=== PATIENT | male | born 1950 | race Caucasian/White ===

== ENCOUNTER 2016-10-14 10:23 | Emergency (ER) | payer MEDICARE, OTHER ==
[~2016-10-14] VITALS: Ht 188 cm; Wt 81.5 kg
[~2016-10-14 10:23] MED LIST: ASPI81TA45 PO; METO25 PO; PRAV40TA PO
[2016-10-14 10:25] VITALS: BP 183/86; PULSE 88; RESP 20; TEMP 97.5; O2SAT 95
[2016-10-14] MEDS ORDERED: ASPI1TAB69 PO (10:38)
[2016-10-14] MEDS ORDERED: PRAV40TA PO (10:38)
[2016-10-14] MEDS ORDERED: METO25TA3 PO (10:38)
[2016-10-14] MEDS ORDERED: COUM1TAB PO (10:41)
[2016-10-14] MEDS ORDERED: LIDOCAINE HCL 1% 50 ML VIAL INFIL ONE (10:45)
--- NOTE | 2016-10-14 10:49 | PD ---
HPI Chief Complaint: Fall Time Seen by Provider: 10:46 Travel History International Travel<30 days: No Contact w/Intl Traveler<30days: No Traveled to known affect area: No History of Present Illness HPI 66-year-old male presents to the emergency department sent by urgent care center for evaluation after a trip and fall. He states that he tripped over a concrete while at work, falling and hitting his face against concrete. He denies any loss of consciousness. The patient has a laceration to the left volar hand just proximal to the second digit. He denies any pain or loss of range of motion. Patient denies any visual changes. He denies any neck pain or back pain. No chest pain or abdominal pain. The patient is on warfarin. Apparently, at an urgent care center, he had skull x-rays and they were concerned of a possible lucency for him to the emergency department for CT scans. The patient denies any pain. His tetanus immunization was updated at urgent care. [facility] Past Medical History Atrial Fibrillation: Yes Heart Rhythm Problems: Yes (PT DIAGNOSED WITH A-FIB) Cardiovascular Problems: Yes (PT BEING ADMITTED WITH ATRIAL FIBRILLATION NEW ONSET ) High Cholesterol: Yes Chest Pain: No Congestive Heart Failure: No Diminished Hearing: No Genitourinary: No Hiatal Hernia: Yes Musculoskeletal: No Neurologic: No Reproductive: No Respiratory: No Tetanus Vaccination: < 5 Years Influenza Vaccination: No Past Surgical History Abdominal Surgery: No Cardiac Surgery: No Ear Surgery: No Endocrine Surgery: No Eye Surgery: No Genitourinary Surgery: No Gynecologic Surgery: No Oral Surgery: No Thoracic Surgery: No Other Surgery: Yes (HERNIA REPAIR AT 8 YEARS OF AGE ) Social History Alcohol Use: Yes (BEER OCCASIONALLY) Tobacco Use: No (QUIT IN ) Substance Use: No Allergies-Medications (Allergen,Severity, Reaction): Coded Allergies: No Known Allergies (Verified , 10/14/16) Reported Meds & Prescriptions Reported Meds & Active Scripts Active Reported Coumadin (Warfarin) 1 Mg Tab Unknown Dose PO DAILY Metoprolol Tartrate 25 Mg Tab 25 Mg PO DAILY Pravachol (Pravastatin) 40 Mg Tab 40 Mg PO DAILY Aspirin 81 Mg Tabdr 81 Mg PO DAILY Review of Systems Except as stated in HPI: all other systems reviewed are Neg Physical Exam Narrative GENERAL: Well-nourished, well-developed male patient, ambulatory. Afebrile. SKIN: Focused skin assessment warm/dry. Patient has abrasions to dorsal nose, upper lip. He also has a 2.5 cm laceration to the left volar hand just proximal to the second digit. I'm able to visualize the base of this wound which is not bleeding. HEAD: Normocephalic. ENT: Mucosa pink and moist. No erythema or exudates. No uvular edema. No uvular , palatal, or tonsillar deviation. Airway patent. Nasal turbinates appear normal , but nasal blood noted. No purulent drainage or septal hematoma. Bilateral tympanic membranes are clear without erythema or perforation. EYES: No scleral icterus. No injection or drainage. PERRLA. NECK: Supple, trachea midline. No JVD or lymphadenopathy. CARDIOVASCULAR: Regular rate and rhythm without murmurs, gallops, or rubs. Left radial pulse is 2+ P RESPIRATORY: Breath sounds equal bilaterally. No accessory muscle use. Lungs sounds are clear to auscultation. GASTROINTESTINAL: Abdomen soft, non-tender, nondistended. MUSCULOSKELETAL: No cyanosis, or edema. Patient has full range of motion of all digits of the left hand. He has a normal grasp and left hand. He can make a full fist and fully extend all digits of the left hand. BACK: Nontender without obvious deformity. No CVA tenderness. Patient has no midline spinal tenderness. He has full range of motion the cervical spine without pain or stiffness. Data Data Last Documented VS Vital Signs Date Time Temp Pulse Resp B/P Pulse Ox O2 Delivery O2 Flow Rate FiO2 10/14/16 10:38 17 99 Room Air 10/14/16 10:25 97.5 88 183/[address] Brain W/O Iv Contrast(Rout) (10/14/16 ) Ct Facial Bones W/O Iv Cont (10/14/16 ) Lidocaine 1% Inj (50 Ml) (Xylocaine 1% I (10/14/16 10:45) Prothrombin Time / Inr (Pt) (10/14/16 10:55) Labs Laboratory Tests Test 10/14/16 11:10 Prothrombin Time 11.3 SEC Prothromb Time International 1.0 RATIO Ratio MDM Medical Decision Making Medical Screen Exam Complete: Yes Emergency Medical Condition: Yes Medical Record Reviewed: Yes Differential Diagnosis Closed head injury versus intracranial abnormality versus contusion versus fracture versus abrasion versus laceration Narrative Course 66-year-old male presents to the emergency department for evaluation after a trip and fall at work. He was sent by urgent care after a skull x-ray and facial bone x-rays were completed. He was sent here for further imaging, CT scans. The patient denies any complaints. There is no evidence of tendon injury on exam. Patient gives verbal consent for laceration repair. CT of the brain and CT of the facial bones are ordered and pending. CT of the brain shows no acute intracranial disease. CT of the facial bones shows a questionable nondisplaced fracture lateral right maxillary sinus. PT is 11.3, INR 1.0. The patient has no tenderness over area of questionable fracture. Therefore, I believe that fracture is unlikely in this area. The laceration is repaired. Patient is instructed on proper wound care. He will be discharged with a prescription for Keflex. I did discuss the patient that his INR was 1.0. He states that he ran out of his Coumadin one week ago. He is not sure why he is on Coumadin, but states it is not for atrial fibrillation. I discussed that he needs to follow-up with his doctor as soon as possible for his Coumadin. He verbalizes understanding. The patient was discharged in stable condition with instructions, including return instructions and follow up instructions. Procedures Procedure Narrative LACERATION LOCATION: Left hand LENGTH: 2.5 cm NUMBER OF STITCHES/GABY: 4 simple interrupted sutures REPAIR: The area of the laceration was prepped with Betadine and sterilely draped. The laceration was infiltrated with 1% lidocaine. The wound was copiously irrigated and explored without evidence of foreign body, tendon injury or neurovascular injury. The wound was closed using 4-0 Prolene. This was a single layer repair. A sterile dressing was applied. The patient was advised to keep the dressing clean and dry. Patient tolerated the procedure well. Diagnosis Primary Impression: Closed head injury Qualified Code: S09.90XA - Closed head injury, initial encounter Additional Impressions: Facial contusion Qualified Code: S00.83XA - Facial contusion, initial encounter Hand laceration Qualified Code: S61.412A - Laceration of left hand without foreign body, initial encounter Patient Instructions: Care For Your Stitches (ED), General Instructions, Head Injury (ED), Laceration (ED) Additional Instructions: Clean abrasions and laceration twice daily with soap and water and apply over- the-counter antibiotic ointment. Keep clean and dry. Take antibiotic as directed until gone. Follow-up with your Worker's Comp. physician. Return to the emergency department for any acute worsening of symptoms. Med/Other Pt SpecificInfo: Prescription(s) given Scripts Cephalexin (Keflex)500 Mg Ogq278 Mg PO Q8H 7 Days Ref 0 Prov:Sobeida Paul 10/14/16 Disposition: 01 DISCHARGE HOME Condition: Stable Sobeida Paul October 14, 2016 10:49
[2016-10-14 11:45] LABS: PROTHROMBIN TIME - PATIENT 11.3 SEC (9.8-11.6)
--- NOTE | 2016-10-14 12:30 | RADRPT ---
EXAM DATE/TIME: 10/14/2016 12:15 [facility] COMPARISON: CT BRAIN W/O CONTRAST, December 23, 2010, 12:58. INDICATIONS : Tripped and fell at work, abrasion to nose and lip RADIATION DOSE: 47.66 CTDIvol (mGy) MEDICAL HISTORY : Cardiovascular disease. SURGICAL HISTORY : Hernia repair ENCOUNTER: Initial ACUITY: 1 day PAIN SCALE: 3/10 LOCATION: facial TECHNIQUE: Multiple contiguous axial images were obtained of the head. Using automated exposure control and adj ustment of the mA and/or kV according to patient size, radiation dose was kept as low as reasonably a chievable to obtain optimal diagnostic quality images. FINDINGS: CEREBRUM: The ventricles are unchanged in size, posterior horn right lateral ventricle is somewhat prominent bu t unchanged. Cavum septum pellucidum. No evidence of midline shift, mass lesion, hemorrhage or acute infarction. No extra-axial fluid collections are seen. POSTERIOR FOSSA: The cerebellum and brainstem are intact. The 4th ventricle is midline. The cerebellopontine angle i s unremarkable. EXTRACRANIAL: The visualized portion of the orbits is intact. SKULL: The calvaria is intact. No evidence of skull fracture. CONCLUSION: No acute intracranial disease. Flako Hernandez MD on October 14, 2016 at 12:26 Board Certified Radiologist. This report was verified electronically.
--- NOTE | 2016-10-14 12:33 | RADRPT ---
EXAM DATE/TIME: 10/14/2016 12:15 [facility] COMPARISON: No previous studies available for comparison. INDICATIONS : Tripped and fell at work, abrasion to nose and lip. RADIATION DOSE: 63.63 CTDIvol (mGy) MEDICAL HISTORY : Cardiovascular disease. SURGICAL HISTORY : Hernia repair ENCOUNTER: Initial ACUITY: 1 day PAIN SCORE: 3/10 LOCATION: facial TECHNIQUE: Volumetric scanning of the facial bones was performed. Using automated exposure control and adjustme nt of the mA and/or kV according to patient size, radiation dose was kept as low as reasonably achiev able to obtain optimal diagnostic quality images. FINDINGS: ORBITS: The orbital and infraorbital osseous structures are intact. The retroconal structures have a normal configuration. No radiopaque foreign bodies are seen. NASAL BONE: The nasal bone and maxillary spine are intact ZYGOMATIC ARCHES: Symmetric without evidence of fracture. SINUSES: Questionable nondisplaced fracture lateral right maxillary sinus. Partial opacification of the maxill meagan and ethmoid sinuses with minimal disease in the sphenoid sinuses. Hypoplastic frontal sinuses gre ater in the left. NASAL CAVITY: The nasal septum is intact and midline. The lacrimal ducts are intact. SOFT TISSUES: No radiopaque foreign bodies seen. Facial soft-tissue swelling is seen. INTRACRANIAL: No intracranial air seen. CRIBIFORM PLATE: Grossly intact. CONCLUSION: 1. Questionable nondisplaced fracture lateral right axillary sinus. 2. Pansinusitis. 3. Facial soft tissue swelling. Flako Hernandez MD on October 14, 2016 at 12:27 Board Certified Radiologist. This report was verified electronically.
[2016-10-14] MEDS ORDERED: CEPH-460 PO (13:25)
== END 2016-10-14 13:48 | disposition home or self-care (01) ==
LOC: NEPD 10:23
DX: S61.412A Laceration without foreign body of left hand, initial encounter (principal); S00.83XA Contusion of other part of head, initial encounter; S09.90XA Unspecified injury of head, initial encounter; I48.91 Unspecified atrial fibrillation; W18.09XA Striking against other object with subsequent fall, initial encounter; Y99.0 Civilian activity done for income or pay
CPT/HCPCS: 12001; 70450; 70486; 85610

== ENCOUNTER 2017-09-01 10:30 | Emergency (ER) | payer OTHER ==
[~2017-09-01] VITALS: Ht 188 cm; Wt 84.0 kg
[~2017-09-01 10:30] MED LIST changes: +ASPI1TAB69 PO; -ASPI81TA45 PO; +CEPH-460 PO; +COUM1TAB PO; -METO25 PO; +METO25TA3 PO
[2017-09-01 11:21] VITALS: BP 112/69; PULSE 82; RESP 18; TEMP 99.6; O2SAT 94
[2017-09-01 11:30] VITALS: RESP 20; O2SAT 87
[2017-09-01] MEDS ORDERED: SODIUM CHLORIDE 0.9% FLUSH 10 ML FLUSH IVF PRN (11:30)
--- NOTE | 2017-09-01 11:55 | RADRPT ---
EXAM DATE/TIME: 09/01/2017 11:35 [facility] COMPARISON: No previous studies available for comparison. INDICATIONS : Cough MEDICAL HISTORY : None. SURGICAL HISTORY : None. ENCOUNTER: Initial ACUITY: 3 days PAIN SCORE: 0/10 LOCATION: Bilateral chest FINDINGS: A single view of the chest demonstrates the lungs to be symmetrically aerated without evidence of mas s, infiltrate or effusion. The cardiomediastinal contours are unremarkable. Osseous structures are intact. Costicartilage calcifications present. There are electrocardiogram leads. CONCLUSION: No acute disease. There is no evidence of pneumonia. Ishmael Carreon MD on September 01, 2017 at 11:52 Board Certified Radiologist. This report was verified electronically.
--- NOTE | 2017-09-01 12:06 | PD ---
HPI Chief Complaint: Syncope/Near-Syncope Time Seen by Provider: 11:21 Travel History International Travel<30 days: No Contact w/Intl Traveler<30days: No Traveled to known affect area: No History of Present Illness HPI 67-year-old male complains of cough for a few days. He reports multiple people in his home also have had similar symptoms. The patient arrived by private vehicle to EMS and in triage coughed a few times and then lost consciousness and then upon waking up vomited. The patient denies this at the time of my assessment. He has no chest pain or shortness of breath. The cough is nonproductive. No fever. Patient's significant other reports he has been much less active and generally over the past few days. [facility] Past Medical History Atrial Fibrillation: Yes Heart Rhythm Problems: Yes (PT DIAGNOSED WITH A-FIB) Cardiovascular Problems: Yes (PT BEING ADMITTED WITH ATRIAL FIBRILLATION NEW ONSET ) High Cholesterol: Yes Chest Pain: No Congestive Heart Failure: No Diminished Hearing: No Genitourinary: No Hiatal Hernia: Yes Musculoskeletal: No Neurologic: No Reproductive: No Respiratory: No Influenza Vaccination: Yes Past Surgical History Abdominal Surgery: No Cardiac Surgery: No Ear Surgery: No Endocrine Surgery: No Eye Surgery: No Genitourinary Surgery: No Gynecologic Surgery: No Neurologic Surgery: No Oral Surgery: No Thoracic Surgery: No Other Surgery: Yes (HERNIA REPAIR AT 8 YEARS OF AGE ) Social History Alcohol Use: Yes (BEER OCCASIONALLY) Tobacco Use: No (QUIT IN ) Substance Use: No Allergies-Medications (Allergen,Severity, Reaction): Coded Allergies: No Known Allergies (Verified Adverse Reaction, Unknown, 09/01/17) Reported Meds & Prescriptions Reported Meds & Active Scripts Active Keflex (Cephalexin) 500 Mg Cap 500 Mg PO Q8H 7 Days Reported Coumadin (Warfarin) 1 Mg Tab Unknown Dose PO DAILY Metoprolol Tartrate 25 Mg Tab 25 Mg PO DAILY Pravachol (Pravastatin) 40 Mg Tab 40 Mg PO DAILY Aspirin 81 Mg Tabdr 81 Mg PO DAILY Review of Systems Except as stated in HPI: all other systems reviewed are Neg General / Constitutional: No: Fever Physical Exam Narrative GENERAL: 67-year-old male well-nourished well-developed, no acute distress, answering questions appropriately Vital Signs Date Time Temp Pulse Resp B/P (MAP) Pulse Ox O2 Delivery O2 Flow Rate FiO2 09/01/17 11:30 20 87 Nasal Cannula 2.00 09/01/17 11:21 99.6 82 18 112/69 (83) 94 SKIN: Warm and dry. HEAD: Atraumatic. Normocephalic. EYES: Pupils equal and round. No scleral icterus. No injection or drainage. ENT: No nasal bleeding or discharge. Mucous membranes pink and moist. NECK: Trachea midline. No JVD. CARDIOVASCULAR: R regular rhythm. Rate about 80.. RESPIRATORY: The lungs are clear bilaterally. GASTROINTESTINAL: Abdomen soft, non-tender, nondistended. Hepatic and splenic margins not palpable. MUSCULOSKELETAL: Extremities without clubbing, cyanosis, or edema. No obvious deformities. NEUROLOGICAL: Awake and alert. No obvious cranial nerve deficits. Motor grossly within normal limits. Five out of 5 muscle strength in the arms and legs. Normal speech. PSYCHIATRIC: Appropriate mood and affect; insight and judgment normal. Data Data Last Documented VS Vital Signs Date Time Temp Pulse Resp B/P (MAP) Pulse Ox O2 Delivery O2 Flow Rate FiO2 09/01/17 13:29 87 18 150/76 (100) 95 Nasal Cannula 2.00 09/01/17 11:21 99.6 Orders Orders Electrocardiogram (09/01/17 11:26) Complete Blood Count With Diff (09/01/17 11:26) Comprehensive Metabolic Panel (09/01/17 11:26) Magnesium (Mg) (09/01/17 11:26) Ckmb (Isoenzyme) Profile (09/01/17 11:26) Troponin I (09/01/17 11:26) Chest, Single Ap (09/01/17 11:26) Ecg Monitoring (09/01/17 11:26) Iv Access Insert/Monitor (09/01/17 11:26) Oximetry (09/01/17 11:26) Sodium Chloride 0.9% Flush (Ns Flush) (09/01/17 11:30) Ct Pulmonary Angiogram (09/01/17 11:26) B-Type Natriuretic Peptide (09/01/17 11:26) CKMB (09/01/17 12:00) CKMB% (09/01/17 12:00) Iohexol 350 Inj (Omnipaque 350 Inj) (09/01/17 13:11) Ed Discharge Order (09/01/17 13:44) Labs Laboratory Tests Test 09/01/17 12:00 White Blood Count 4.4 TH/MM3 Red Blood Count 4.66 MIL/MM3 Hemoglobin 14.8 GM/DL Hematocrit 43.8 % Mean Corpuscular Volume 94.0 FL Mean Corpuscular Hemoglobin 31.8 PG Mean Corpuscular Hemoglobin Concent 33.8 % Red Cell Distribution Width 12.3 % Platelet Count 121 TH/MM3 Mean Platelet Volume 8.3 FL Neutrophils (%) (Auto) 67.4 % Lymphocytes (%) (Auto) 19.2 % Monocytes (%) (Auto) 8.6 % Eosinophils (%) (Auto) 0.4 % Basophils (%) (Auto) 4.4 % Neutrophils # (Auto) 3.0 TH/MM3 Lymphocytes # (Auto) 0.8 TH/MM3 Monocytes # (Auto) 0.4 TH/MM3 Eosinophils # (Auto) 0.0 TH/MM3 Basophils # (Auto) 0.2 TH/MM3 CBC Comment DIFF FINAL Differential Comment Blood Urea Nitrogen 20 MG/DL Creatinine 1.00 MG/DL Random Glucose 107 MG/DL Total Protein 7.0 GM/DL Albumin 3.3 GM/DL Calcium Level 7.7 MG/DL Magnesium Level 2.1 MG/DL Alkaline Phosphatase 69 U/L Aspartate Amino Transf (AST/SGOT) 55 U/L Alanine Aminotransferase (ALT/SGPT) 46 U/L Total Bilirubin 0.5 MG/DL Sodium Level 135 MEQ/L Potassium Level 3.6 MEQ/L Chloride Level 100 MEQ/L Carbon Dioxide Level 28.4 MEQ/L Anion Gap 7 MEQ/L Estimat Glomerular Filtration Rate 74 ML/MIN Total Creatine Kinase 370 U/L Creatine Kinase MB 4.4 NG/ML Creatine Kinase MB % 1.2 % Troponin I LESS THAN 0.02 NG/ML B-Type Natriuretic Peptide 9 PG/ML [facility] Medical Decision Making Medical Screen Exam Complete: Yes Emergency Medical Condition: Yes Medical Record Reviewed: Yes Differential Diagnosis NSTEMI, unstable angina, coronary vasospasm, PE, PTX, aortic dissection, pericarditis, myocarditis, endocarditis, PNA, esophageal disease, aneurysm, musculoskeletal etiologies, anxiety, cocaine/sympathomimetic abuse Narrative Course CBC & BMP Diagram 09/01/17 12:00 Total Protein 7.0, Albumin 3.3 L, Calcium Level 7.7 L, Magnesium Level 2.1, Alkaline Phosphatase 69, Aspartate Amino Transf (AST/SGOT) 55 H, Alanine Aminotransferase (ALT/SGPT) 46, Total Bilirubin 0.5 Total creatinine kinase 27 Troponin less than 0.02 BNP 9 Last Impressions Chest X-Ray 09/01/17 1126 Signed Impressions: Service Date/Time: Friday, September 01, 2017 11:35 - CONCLUSION: No acute disease. There is no evidence of pneumonia. Ishmael Carreon MD CT Angiography 09/01/17 1126 Signed Impressions: Service Date/Time: Friday, September 01, 2017 12:59 - CONCLUSION: No evidence of pulmonary embolism or acute cardiopulmonary process. Central airway disease with bronchial wall thickening. Maximo Whitten MD Patient elects to leave AGAINST MEDICAL ADVICE. Necessity of staying for treatment in the setting of syncope discussed. The patient verbalized understanding. He understands that if he goes home he is at increased risk for bad outcomes not limited to an emergency return visit to the ER followed by an ICU admission for potentially . Permanent disability pain and suffering not excluded. Patient verbalized understanding. He has capacity for independent decision making and understanding of the risks involved. Patient significant other present during discussion, which occurred at 1335. Diagnosis Primary Impression: Left against medical advice Med/Other Pt SpecificInfo: Prescription(s) given Scripts Azithromycin (Azithromycin) 250 Mg Tab 250 MG PO DIRECTED for Infection, #6 TAB 0 Refills Take 2 tabs (500 mg) on day 1 then 1 tab daily x 4 days. Prov: Alfa Billingsley MD 09/01/17 Albuterol 8.5 GM Inh (Proair Hfa 8.5 GM Inh) 90 Mcg/Act Aer 2 PUFF INH Q6H Y for SHORTNESS OF BREATH, #1 INHALER 0 Refills 108 mcg/actuation Prov: Alfa Billingsley MD 09/01/17 Disposition: 07 AGAINST MEDICAL ADVICE Condition: Stable Alfa Billingsley MD Sep 01, 2017 12:06
[2017-09-01 12:17] LABS: BASOPHIL # 0.2 TH/MM3 (0-0.2); BASOPHIL % 4.4 % (0.0-2.0); EOSINOPHIL % 0.4 % (0.0-4.0); HEMATOCRIT 43.8 % (39.0-51.0); HEMOGLOBIN 14.8 GM/DL (13.0-17.0); LYMPH % 19.2 % (9.0-44.0); LYMPHOCYTE # 0.8 TH/MM3 (1.0-4.8); MEAN CORPUSCULAR HEMOGLOBIN 31.8 PG (27.0-34.0); MEAN CORPUSCULAR HGB CONC 33.8 % (32.0-36.0); MEAN PLATELET VOLUME 8.3 FL (7.0-11.0); MONO % 8.6 % (0.0-8.0); MONOCYTE # 0.4 TH/MM3 (0-0.9); NEUT % 67.4 % (16.0-70.0); PLATELET COUNT 121 TH/MM3 (150-450); RED BLOOD COUNT 4.66 MIL/MM3 (4.50-5.90); RED CELL DISTRIBUTION WIDTH 12.3 % (11.6-17.2); WHITE BLOOD COUNT 4.4 TH/MM3 (4.0-11.0)
[2017-09-01 12:23] LABS: CHLORIDE 100 MEQ/L (98-107); SODIUM (NA) 135 MEQ/L (136-145)
[2017-09-01 12:27] LABS: CALCIUM 7.7 MG/DL (8.5-10.1)
[2017-09-01 12:28] LABS: ALBUMIN 3.3 GM/DL (3.4-5.0); BICARBONATE 28.4 MEQ/L (21.0-32.0); BLOOD UREA NITROGEN 20 MG/DL (7-18); GLUCOSE,RANDOM 107 MG/DL (74-106); MAGNESIUM 2.1 MG/DL (1.5-2.5)
[2017-09-01 12:30] VITALS: RESP 20; O2SAT 96
[2017-09-01 12:31] LABS: ALT (GPT) 46 U/L (12-78); AST (GOT) 55 U/L (15-37); GLOMERULAR FILTRATION RATE 74 ML/MIN (>89)
[2017-09-01 12:32] LABS: TOTAL BILIRUBIN ADULT 0.5 MG/DL (0.2-1.0)
[2017-09-01 12:34] LABS: ALKALINE PHOSPHATASE 69 U/L (45-117)
[2017-09-01 12:36] LABS: TROPONIN I LESS THAN 0.02 NG/ML (0.02-0.05)
[2017-09-01] MEDS ORDERED: IOHEXOL 350 MG/ML 10 ML VIAL (for RAD DIAG) IVCONTRAST ONE (13:11)
--- NOTE | 2017-09-01 13:15 | RADRPT ---
EXAM DATE/TIME: 09/01/2017 12:59 [facility] COMPARISON: No previous studies available for comparison. INDICATIONS : Cough for 3 days, syncope today. IV CONTRAST: 100 cc Omnipaque 350 (iohexol) IV RADIATION DOSE: 10.88 CTDIvol (mGy) MEDICAL HISTORY : Cardiovascular disease. New diagnosis of A Fib. SURGICAL HISTORY : H.Hernia ENCOUNTER: Initial ACUITY: 3 days PAIN SCALE: 0/10 LOCATION: chest TECHNIQUE: Volumetric scanning of the chest was performed using a pulmonary embolism protocol MIP images were re constructed. Using automated exposure control and adjustment of the mA and/or kV according to patien t size, radiation dose was kept as low as reasonably achievable to obtain optimal diagnostic quality images. DICOM format image data is available electronically for review and comparison. Follow-up recommendations for detected pulmonary nodules are based at a minimum on nodule size and pa tient risk factors according to Fleischner Society Guidelines. FINDINGS: PULMONARY ARTERIES: No filling defects are seen in the pulmonary arteries through the segmental level. LUNGS: There is no consolidation or pneumothorax . No concerning pulmonary nodule is visualized. Central ai rway disease with bronchial wall thickening is noted. PLEURAE: There is no pleural thickening or pleural effusion. MEDIASTINUM: There is good visualization of the great vessels of the middle mediastinum. No evidence of mediastin al or hilar adenopathy/mass. MUSCULOSKELETAL: Within normal limits for patient age. MISCELLANEOUS: The visualized upper abdominal organs demonstrate no acute abnormality. CONCLUSION: No evidence of pulmonary embolism or acute cardiopulmonary process. Central airway disease with bronchial wall thickening. Maximo Whitten MD on September 01, 2017 at 13:10 Board Certified Radiologist. This report was verified electronically.
[2017-09-01 13:29] VITALS: BP 150/76; PULSE 87; RESP 18; O2SAT 95
[2017-09-01] MEDS ORDERED: ALBUAER3 INH (13:45)
[2017-09-01] MEDS ORDERED: AZIT250T3 PO (13:45)
--- NOTE | 2017-09-02 14:49 | EKG ---
Date Performed: 09/01/2017 Time Performed: 11:22:43 PTAGE: 67 years EKG: Sinus rhythm LEFT ANTERIOR FASCICULAR BLOCK PROBABLE SEPTAL MYOCARDIAL INFARCTION INFERIOR MYOCARDIAL INFARCTION ABNORMAL ECG Since PREVIOUS TRACING , no significant change noted PREVIOUS TRACIN12/25/2010 05.22 DOCTOR: Zafar Rush Interpretating Date/Time 09/02/2017 14:48:11
== END 2017-09-01 14:04 | disposition left against medical advice (07) ==
LOC: PHED 10:30 → PHEFT 14:04
DX: R05 Cough (principal); I48.91 Unspecified atrial fibrillation; I44.4 Left anterior fascicular block; R94.31 Abnormal electrocardiogram [ECG] [EKG]; I25.2 Old myocardial infarction; E78.00 Pure hypercholesterolemia, unspecified; Z87.891 Personal history of nicotine dependence; Z79.82 Long term (current) use of aspirin; Z79.01 Long term (current) use of anticoagulants
CPT/HCPCS: 71045; 71275; 80053; 82550; 82552; 83735; 83880; 84484; 85025; 93005; 99285; Q9967

== ENCOUNTER 2017-09-09 12:35 | Emergency (ER) | payer OTHER ==
[~2017-09-09] VITALS: Ht 188 cm; Wt 78.0 kg
[~2017-09-09 12:35] MED LIST changes: +ALBUAER3 INH; +AZIT250T3 PO
[2017-09-09 12:46] VITALS: BP 146/67; PULSE 108; RESP 18; TEMP 98.8; O2SAT 93
--- NOTE | 2017-09-09 13:10 | PD ---
HPI Chief Complaint: Dizziness Time Seen by Provider: 13:03 Travel History International Travel<30 days: No Contact w/Intl Traveler<30days: No Traveled to known affect area: No History of Present Illness HPI Patient presents with complaints of persistent cough. Evaluated 8 days ago with complaints of cough and near syncope. Extensive workup completed without significant findings. Patient apparently left AGAINST MEDICAL ADVICE and was given an antibiotic and Tessalon Perles which she completed. Currently denies any nausea vomiting diarrhea or fever. No history of lung disease. Denies any chest pain shortness of breath urinary or bowel symptoms. PFSH Past Medical History Heart Rhythm Problems: Yes (PT DIAGNOSED WITH A-FIB) Cardiovascular Problems: Yes (PT denies) High Cholesterol: Yes Chest Pain: No Congestive Heart Failure: No Diminished Hearing: No Genitourinary: No Hiatal Hernia: Yes Hypertension: No Musculoskeletal: No Neurologic: No Reproductive: No Respiratory: No Tetanus Vaccination: Unknown Influenza Vaccination: Yes Past Surgical History Abdominal Surgery: No Cardiac Surgery: No Ear Surgery: No Endocrine Surgery: No Eye Surgery: No Genitourinary Surgery: No Gynecologic Surgery: No Neurologic Surgery: No Oral Surgery: No Thoracic Surgery: No Other Surgery: Yes (HERNIA REPAIR AT 8 YEARS OF AGE , nasal surgery) Social History Alcohol Use: Yes (BEER OCCASIONALLY) Tobacco Use: No (QUIT IN ) Substance Use: No Allergies-Medications (Allergen,Severity, Reaction): Coded Allergies: No Known Allergies (Verified Adverse Reaction, Unknown, 09/09/17) Reported Meds & Prescriptions Reported Meds & Active Scripts Active Reported Pravachol (Pravastatin) 40 Mg Tab 40 Mg PO DAILY Aspirin 81 Mg Tabdr 81 Mg PO DAILY Review of Systems General / Constitutional: No: Fever Eyes: No: Visual changes HENT: No: Headaches Cardiovascular: No: Chest Pain or Discomfort Respiratory: Positive: Cough, No: Shortness of Breath Gastrointestinal: No: Abdominal Pain Genitourinary: No: Dysuria Musculoskeletal: No: Pain Skin: No Rash Neurologic: No: Weakness Psychiatric: No: Depression Endocrine: No: Polydipsia Hematologic/Lymphatic: No: Easy Bruising Physical Exam Narrative GENERAL: Well-nourished, well-developed patient. SKIN: Focused skin assessment warm/dry. HEAD: Normocephalic. EYES: No scleral icterus. No injection or drainage. NECK: Supple, trachea midline. No JVD or lymphadenopathy. CARDIOVASCULAR: Regular rate and rhythm without murmurs, gallops, or rubs. RESPIRATORY: Breath sounds mildly coarse right lower lobe. No accessory muscle use. GASTROINTESTINAL: Abdomen soft, non-tender, nondistended. MUSCULOSKELETAL: No cyanosis, or edema. BACK: Nontender without obvious deformity. No CVA tenderness. Data Data Last Documented VS Vital Signs Date Time Temp Pulse Resp B/P (MAP) Pulse Ox O2 Delivery O2 Flow Rate FiO2 09/09/17 13:03 110 16 96 Room Air 09/09/17 12:46 98.8 146/67 (93) Orders Orders Complete Blood Count With Diff (09/09/17 13:03) Chest, Single Ap (09/09/17 ) Labs Laboratory Tests Test 09/09/17 13:11 White Blood Count 13.6 TH/MM3 Red Blood Count 4.25 MIL/MM3 Hemoglobin 13.4 GM/DL Hematocrit 39.6 % Mean Corpuscular Volume 93.2 FL Mean Corpuscular Hemoglobin 31.5 PG Mean Corpuscular Hemoglobin Concent 33.8 % Red Cell Distribution Width 12.5 % Platelet Count 206 TH/MM3 Mean Platelet Volume 8.2 FL Neutrophils (%) (Auto) 88.0 % Lymphocytes (%) (Auto) 4.7 % Monocytes (%) (Auto) 4.5 % Eosinophils (%) (Auto) 0.5 % Basophils (%) (Auto) 2.3 % Neutrophils # (Auto) 12.0 TH/MM3 Lymphocytes # (Auto) 0.6 TH/MM3 Monocytes # (Auto) 0.6 TH/MM3 Eosinophils # (Auto) 0.1 TH/MM3 Basophils # (Auto) 0.3 TH/MM3 CBC Comment DIFF FINAL Differential Comment [facility] Medical Decision Making Medical Screen Exam Complete: Yes Emergency Medical Condition: Yes Differential Diagnosis Persistent cough with bronchitis, resolving pneumonia, resolving viral upper respiratory infection Narrative Course Assessment and plan discussed with patient and at bedside. Mild leukocytosis noted. Last 72 hours Impressions Chest X-Ray 09/09/17 0000 Signed Impressions: Service Date/Time: Saturday, September 09, 2017 13:27 - CONCLUSION: No acute disease. Maximo Whitten MD I think with a leukocytosis and persistent cough repeat antibiotics are probably warranted with a steroid and cough suppressant. Diagnosis Primary Impression: Cough Additional Impression: Leukocytosis Qualified Codes: D72.829 - Elevated white blood cell count, unspecified Patient Instructions: General Instructions Additional Instructions: Rest fluids and Motrin, discussed humidifier. Encouraged hydration to keep mucous moist, follow-up with PCP, return to emergency room with any onset of new symptoms. Med/Other Pt SpecificInfo: Prescription(s) given Scripts Guaifenesin-Codeine Liq (Cheratussin AC Liq) 100-10 Mg/5 Ml Syrp 10 ML PO Q4H Y for COUGH AND COLD SYMPTOMS, #120 ML 0 Refills Do not exceed 6 doses/24 hrs. Prov: Juvenal Cordero MD 09/09/17 Prednisone (21) 10 mg tab Dose Pack (Prednisone (21) 10 mg tab Dose Pack) 10 Mg Pack 10 MG PO DIRECTED for Inflammation, #1 DSPK 0 Refills Prov: Juvenal Cordero MD 09/09/17 Azithromycin (Zithromax) 500 Mg Tab 500 MG PO DAILY for Infection, #7 TAB 0 Refills Prov: Juvenal Cordero MD 09/09/17 Disposition: 01 DISCHARGE HOME Condition: Good Juvenal Cordero MD Sep 09, 2017 13:10
[2017-09-09 13:23] LABS: BASOPHIL # 0.3 TH/MM3 (0-0.2); BASOPHIL % 2.3 % (0.0-2.0); EOSINOPHIL # 0.1 TH/MM3 (0-0.4); EOSINOPHIL % 0.5 % (0.0-4.0); HEMATOCRIT 39.6 % (39.0-51.0); HEMOGLOBIN 13.4 GM/DL (13.0-17.0); LYMPH % 4.7 % (9.0-44.0); LYMPHOCYTE # 0.6 TH/MM3 (1.0-4.8); MEAN CELL VOLUME 93.2 FL (80.0-100.0); MEAN CORPUSCULAR HEMOGLOBIN 31.5 PG (27.0-34.0); MEAN CORPUSCULAR HGB CONC 33.8 % (32.0-36.0); MEAN PLATELET VOLUME 8.2 FL (7.0-11.0); MONO % 4.5 % (0.0-8.0); MONOCYTE # 0.6 TH/MM3 (0-0.9); PLATELET COUNT 206 TH/MM3 (150-450); RED BLOOD COUNT 4.25 MIL/MM3 (4.50-5.90); RED CELL DISTRIBUTION WIDTH 12.5 % (11.6-17.2); WHITE BLOOD COUNT 13.6 TH/MM3 (4.0-11.0)
--- NOTE | 2017-09-09 14:22 | RADRPT ---
EXAM DATE/TIME: 09/09/2017 13:27 [place] COMPARISON: CHEST SINGLE AP, September 01, 2017, 11:35. INDICATIONS : Cough and congestion. MEDICAL HISTORY : None. SURGICAL HISTORY : None. ENCOUNTER: Initial ACUITY: 3 days PAIN SCORE: 6/10 LOCATION: Bilateral chest FINDINGS: A single view of the chest demonstrates the lungs to be symmetrically aerated without evidence of mas s, infiltrate or effusion. The cardiomediastinal contours are unremarkable. Osseous structures are intact. CONCLUSION: No acute disease. Maximo Whitten MD on September 09, 2017 at 14:19 Board Certified Radiologist. This report was verified electronically.
[2017-09-09] MEDS ORDERED: ZITH500T PO (15:00)
[2017-09-09] MEDS ORDERED: CHERSYP2 PO (15:00)
[2017-09-09] MEDS ORDERED: PRED10PA PO (15:00)
[2017-09-09 15:04] VITALS: BP 148/81
== END 2017-09-09 15:09 | disposition home or self-care (01) ==
LOC: PHED 12:35
DX: R05 Cough (principal); D72.829 Elevated white blood cell count, unspecified; E78.00 Pure hypercholesterolemia, unspecified; I48.91 Unspecified atrial fibrillation; Z79.82 Long term (current) use of aspirin
CPT/HCPCS: 71045; 85025; 99284